=== PATIENT | male | born 1970 | race Caucasian/White ===

== ENCOUNTER 2020-05-18 08:09 | Emergency (ER) | payer MEDICAID, SELFPAY ==
[2020-05-18 08:25] VITALS: BP 117/82; PULSE 83; RESP 14; TEMP 36.8; O2SAT 98; BMI 29.0
--- NOTE | 2020-05-18 08:38 | XR_ITS ---
EXAMINATION: XR LUMBOSACRAL SPINE CLINICAL INFORMATION: Swelling low back pain COMPARISON: X-rays of lumbar sacral spine May 2011. Multiple prior CT examinations most recent October 2016. TECHNIQUE: Three views of the lumbosacral spine. FINDINGS: There is a grade 1-2 anterolisthesis of L5 and S1 secondary to bilateral pars defects. This was present on the prior examination 2010 as well as recent imaging exams.. No definite change in alignment at this level. There is multilevel degenerative disc changes from L1-L2 through L5-S1 manifested by disc space narrowing with endplate osteophytes most prominent at the L5-S1 level. There is a prominent syndesmophyte at the L3-L4 level increased compared to prior imaging exams. The partially visualized pelvis including sacroiliac joints is normal. XR/XR lumbar spine 2-3V IMPRESSION: Degenerative changes lumbar sacral spine with a chronic anterolisthesis at L5-S1 secondary to bilateral pars defects essentially unchanged compared with 2011. No acute abnormality.
--- NOTE | 2020-05-18 08:55 | ED.BACK ---
HPI - Back Pain/Injury General Chief Complaint: Back Pain/Injury Stated Complaint: back pain Time Seen by Provider: 05/18/20 08:38 Source: patient Mode of arrival: ambulatory History of Present Illness HPI Narrative: 49yo M with a past medical history of chronic back pain, depression presenting to ED complaining of left-sided low back pain radiating down LLE x1 week s/p heavy lifting at work. Reports lifted tires out of [employer] truck, prior to having pain urine also reports lump to lower back. Denies fever, chills, direct trauma/injury to area, weakness, urinary incontinence or retention Denies MARGE ROLAND elicited complaint: back injury Related Data Previous Rx's Medication Instructions Recorded acetaminophen [Tylenol Extra 500 mg PO Q6H PRN #20 tab 05/18/20 Strength] cyclobenzaprine 5 mg PO Q8H PRN 5 Days #14 tab 05/18/20 lidocaine [Lidoderm] 1 patch TOPICAL DAILY PRN #30 ea 05/18/20 MDD remove after 12 hours naproxen 500 mg PO BID PRN 10 Days #20 tab 05/18/20 Allergies Allergy/AdvReac Type Severity Reaction Status Date / Time No Known Allergies Allergy Unverified 03/23/20 16:31 Review of Systems Review of Systems: Constitutional: No Weight loss, No Fever, No Chills Genitourinary:, No Dysuria, No Urinary Incontinence or retention Musculoskeletal: +back pain, No Myalgias, No Joint Swelling Skin: No Skin Lesions, No rash Neuro: No Weakness, No Numbness, No Paresthesias Yes all other systems are reviewed and are negative PMFSH Past Medical History Attestation statement: The following information was validated with the patient. Medical History (Updated 05/18/20 @ 09:01 by TESSA Donaldson) Chronic back pain Depression Surgical History (Updated 05/18/20 @ 08:38 by Barbie Lan) H/O abdominal surgery Social History Social History Advance Directives: No Advance Directives Information Provided: Yes Physical Exam Vital Signs: Vital Signs: Last Vital Signs Temp 98.3 F 05/18/20 08:25 Pulse 83 05/18/20 08:25 Resp 14 05/18/20 08:25 BP 117/82 05/18/20 08:25 Pulse Ox 98 05/18/20 08:25 Body Mass Index 29.0 Const: General: cooperative and healthy appearing Orientation/consciousness: patient oriented x3 Limitations: no limitations HENMT: Head: Yes normal to inspection Ears: hearing grossly normal bilaterally General nose exam: Normal external nose present Face and sinus: Yes normal facial exam Eyes: General: appearance normal, both eyes and all related structures EOM: EOMs intact bilaterally Neck: Neck: Yes normal visual inspection Resp: Effort & Inspection: normal respiratory effort Back/Spine/Pelvis: Other: + swelling noted to midline low lumbar area with mild ttp, no erythema, fluctuance/induration. + left-sided low lumbar MSK ttp Skin: Rashes: no rashes Wounds: no wounds Neuro: Other: No saddle anesthesia. Ambulating with slow steady gait General: patient oriented x3 Extrem: General: Yes normal to inspection Course Course Course Narrative: -x-ray showing degenerative changes of the lumbosacral spine unchanged from 2010. No acute abnormality MDM - Back Pain/Injury MDM Narrative Medical decision making narrative: On exam VSS, NAD/well-appearing, physical exam as above, swelling noted to midline lumbar spine with TTP over area, no overlying infection/abscess, likely muscle spasming. No concern for cauda equina/cord compression Discharge Plan Discharge Clinical Impression: Strain of lumbar region Patient Disposition: Home, Self-Care Instructions: Low Back Strain (ED) Additional Instructions: Your pain is likely musculoskeletal Flexeril is a muscle relaxer, take at night as it makes you drowsy, do not drive, drink alcohol, or operate machinery while taking it Naproxen as an anti-inflammatory / pain medication, take with food Lidoderm patches are numbing patches, apply to painful area In addition take Tylenol at home If symptoms persist or worsen, pain becomes unbearable, you developed urinary retention or incontinence, or weakness return to the ED Prescriptions: New acetaminophen [Tylenol Extra Strength] 500 mg tablet 500 mg PO Q6H PRN (Reason: pain or fever) Qty: 20 RF: 0 lidocaine [Lidoderm] 5 % adhesive patch,medicated 1 patch topical DAILY MDD remove after 12 hours PRN (Reason: pain) Qty: 30 RF: 0 naproxen 500 mg tablet 500 mg PO BID PRN (Reason: pain) 10 Days Qty: 20 RF: 0 cyclobenzaprine 5 mg tablet 5 mg PO Q8H PRN (Reason: pain (scale score 7-10)) 5 Days Qty: 14 RF: 0 Referrals: [facility] [Primary Care Provider] - 2 days Stand Alone Forms: Work/School Release Print Language: Montenegrin
[2020-05-18] MEDS: Cyclobenzaprine HCl 5 MG TABLET PO (09:02)
[2020-05-18] MEDS: Ketorolac Tromethamine 15 MG/ML VIAL IM (09:03)
== END 2020-05-18 09:20 | disposition home or self-care (01) ==
PROVIDERS: Emergency Provider Emergency Medicine
DX: S39.012A Strain of muscle, fascia and tendon of lower back, initial encounter (principal); M54.6 Pain in thoracic spine; X50.0XXA Overexertion from strenuous movement or load, initial encounter; X50.3XXA Overexertion from repetitive movements, initial encounter; X50.9XXA Other and unspecified overexertion or strenuous movements or postures, initial encounter; M79.662 Pain in left lower leg; Z79.899 Other long term (current) drug therapy
CPT/HCPCS: 72100; 96372; 99283; 99284; J1885

== ENCOUNTER 2020-05-26 10:03 | Outpatient (REF) | payer MEDICAID, SELFPAY | END 2020-05-26 10:04 | disposition home or self-care (01) | LOC: HO.LAB 10:03 | PROVIDERS: Visit Provider Internal Medicine | DX: Z20.828 Contact with and (suspected) exposure to other viral communicable diseases (principal) | CPT/HCPCS: C9803; U0003 ==

== ENCOUNTER 2020-11-20 13:35 | Emergency (ER) | payer MEDICAID, SELFPAY ==
--- NOTE | ~2020-11-20 | CT_ITS ---
EXAMINATION: CT ABDOMEN AND PELVIS WITH CONTRAST CLINICAL INFORMATION: Right lower quadrant abdominal pain COMPARISON: 10/16/2016 TECHNIQUE: Multidetector volumetric images were obtained from the superior aspect of the liver through the pubic symphysis following administration 85 mL of Omnipaque 350 intravenous contrast. Sagittal and coronal reformatted images were obtained on the technologist's workstation. Oral contrast: No This CT examination was performed using dose optimization techniques as appropriate, variously including the following: *Automated exposure control *Adjustment of mA and/or kV according to patient size (this includes techniques or standardized protocols for targeted exams where dose is matched to indication/reason for exam; i.e. extremities or head) *Use of iterative reconstruction technique DLP: 423 mGy-cm FINDINGS: LUNG BASES: The visualized lung bases are unremarkable. LIVER, GALLBLADDER, AND BILIARY TREE: Unchanged 1 cm cyst along the anterior margin of the left lobe of the liver; no imaging follow-up recommended. No new suspicious or concerning focal liver lesion seen. The hepatic and portal veins enhance normally. No biliary ductal dilatation. The gallbladder is unremarkable with no evidence of radiopaque gallstones, gallbladder wall thickening, or obvious pericholecystic inflammatory changes. PANCREAS: Unremarkable. SPLEEN: Unremarkable. ADRENAL GLANDS: Unremarkable. KIDNEYS AND URETERS: The kidneys are normal in size, shape, and attenuation. No hydronephrosis, hydroureter, or calculi seen. No perinephric stranding. BLADDER: Unremarkable. GASTROINTESTINAL TRACT: Stomach and small bowel are nondilated. The appendix is well-seen and normal. There appears to be wall thickening of the mid rectum and distal rectum, for example images 70/77 and 66/77. The proximal sigmoid colon is collapsed. The remainder of the colon is normal in appearance with a few scattered colonic diverticula and largely distended by stool. ABDOMINAL WALL: Small fat-containing umbilical hernia. LYMPH NODES: There is right inguinal lymphadenopathy. The largest right inguinal lymph node measures 2.2 x 1.3 cm. These were prominent previously as well. VASCULAR: Normal caliber aorta. PELVIC VISCERA: The prostate and seminal vesicles are unremarkable. OSSEOUS STRUCTURES: There is grade 2 anterolisthesis of L5 on S1 with chronic bilateral L5 pars defects. Severe degenerative disc disease at L5-S1. CT/CT abdomen pelvis w con IMPRESSION: There appears to be wall thickening of the mid rectum and distal rectum. This could be infectious, inflammatory, or neoplastic. Recommend correlation with history, physical exam, and direct visualization. There is right inguinal lymphadenopathy, present in 2017 as well. Its unclear if the lymphadenopathy has persisted in the interval or is recurrent. This could be malignant or reactive from an infectious or inflammatory process. Main clinical correlation. This would be readily amenable to tissue sampling. The appendix is well-seen and normal (image 46/77).
[2020-11-20 14:22] VITALS: BP 123/77; PULSE 70; RESP 18; TEMP 37; O2SAT 98; BMI 29.8
[2020-11-20 15:11] LABS: MANUAL DIFF FLAG NO
[2020-11-20 15:12] LABS: Basophils Absolute Auto 0.1 X10*3/uL (0.0-0.2); Basophils Percent Auto 0.7 % (0-2); Eosinophils Absolute Auto 0.4 X10*3/uL (0.0-0.4); Eosinophils Percent Auto 3.9 % (0-4); Hematocrit 40.6 % (42-52); Hemoglobin 13.5 g/dl (14.0-18.0); Imm Gran Abs Auto 0.03 X10*3/uL (0.00-0.03); Imm Gran Pct Auto 0.3 % (0.0-0.4); Lymphocytes Absolute Auto 2.7 X10*3/uL (1.2-4.9); Lymphocytes Percent Auto 24.6 % (20-40); Mean Corpuscular HGB Conc 33.3 g/dl (31.0-36.0); Mean Corpuscular Hemoglobin 29.4 pg (27.0-33.0); Mean Corpuscular Volume 88.5 fL (80-98); Mean Platelet Volume 10.4 fL (9.4-12.4); Monocytes Absolute Auto 0.8 X10*3/uL (0.1-1.2); Monocytes Percent Auto 6.9 % (2-11); Neutrophils Absolute Auto 6.9 X10*3/uL (2.0-8.3); Neutrophils Percent Auto 63.6 % (45-73); Platelet Count 364 X10*3/uL (160-400); Red Blood Count 4.59 X10*6/uL (4.60-5.80); Red Cell Distribution Width 13.8 % (11.0-16.0); White Blood Count 10.9 X10*3/uL (4.8-10.8)
[2020-11-20 15:21] LABS: Glucose Urine UA NEG (NEG); Leukocyte Esterase Urine NEG (NEG); Nitrite Urine NEG (NEG); Specific Gravity - Urine 1.025 (1.005-1.025); Urine Blood NEG (NEG); Urine Ketones NEG (NEG); Urine Protein NEG (NEG-TRACE)
[2020-11-20 15:28] LABS: Appearance Urine CLEAR; Color Urine YELLOW
[2020-11-20 15:34] LABS: Alanine Aminotransferase 25 U/L (0-40); Albumin Level 4.3 g/dL (3.5-5.0); Alkaline Phosphatase 92 U/L (39-117); Anion Gap 12 (12-20); Aspartate Amino Transferase 21 U/L (5-37); Bilirubin Total 0.5 mg/dL (0.0-1.0); Blood Urea Nitrogen 17 mg/dL (9-16); Carbon Dioxide 24 mmol/L (22-29); Chloride 107 mmol/L (96-108); Creatinine Clr Calc Pharmacy 100.8; Estimated Glomerular Filt Rate > 60; Glucose Random 114 mg/dL (60-115); Lipase 65 U/L (8-78); Potassium 4.1 mmol/L (3.3-5.1); Sodium 139 mmol/L (135-145); Total Protein 7.1 g/dL (6.5-8.0)
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
[2020-11-20] MEDS: 0.9 % Sodium Chloride 1,000 ML 999 ML IVCONT (20:41)
[2020-11-20] MEDS: Ketorolac Tromethamine 30 MG/ML VIAL IVPUSH (20:41)
[2020-11-20 20:44] VITALS: BP 132/88; PULSE 65; RESP 18; TEMP 36.7; O2SAT 96
--- NOTE | 2020-11-20 20:45 | PC.NURSE ---
APPEARS WELL. SKIN PWD. NO VOMITING. ABD SOFT NON TENDER. AWARE OF PLAN FOR CT.
[2020-11-20] MEDS: iohexoL 350 MG/ML 100 ML INFUS..BTL IV (20:57)
[2020-11-20 21:53] VITALS: BP 156/100; PULSE 58; RESP 16; TEMP 36.6; O2SAT 99
[2020-11-20 22:24] VITALS: BP 139/92; PULSE 59; RESP 18; TEMP 37.2; O2SAT 98
[2020-11-20] MEDS: oxyCODONE HCl Immed Release 5 MG TABLET PO (22:48)
[2020-11-20] MEDS: metroNIDAZOLE 500 MG TABLET PO (22:48)
[2020-11-20] MEDS: levoFLOXacin 750 MG TABLET PO (22:48)
== END 2020-11-21 00:24 | disposition home or self-care (01) ==
PROVIDERS: Emergency Provider Emergency Medicine
DX: K52.89 Other specified noninfective gastroenteritis and colitis (principal); R10.32 Left lower quadrant pain; K59.00 Constipation, unspecified; R59.0 Localized enlarged lymph nodes
CPT/HCPCS: 36415; 74177; 80053; 81003; 83690; 85025; 96361; 96374; 99284; J1885; Q9967

== ENCOUNTER 2021-04-11 12:29 | Outpatient (REF) | payer MEDICAID, SELFPAY | END 2021-04-11 12:30 | disposition home or self-care (01) | LOC: HO.LAB 12:29 | PROVIDERS: PCP Internal Medicine; Visit Provider Internal Medicine | DX: Z20.822 Contact with and (suspected) exposure to COVID-19 (principal) | CPT/HCPCS: C9803; U0003; U0005 ==

== ENCOUNTER 2021-04-17 10:37 | Outpatient (REF) | payer MEDICAID, SELFPAY | END 2021-04-17 10:38 | disposition home or self-care (01) | LOC: HO.LAB 10:37 | PROVIDERS: Visit Provider Internal Medicine | DX: Z20.822 Contact with and (suspected) exposure to COVID-19 (principal) | CPT/HCPCS: C9803; U0003; U0005 ==

== ENCOUNTER 2021-04-27 10:43 | Outpatient (REF) | payer MEDICAID, SELFPAY ==
[2021-04-27 11:18] LABS: COVID-19 Test Negative (Negative)
== END 2021-04-27 10:44 | disposition home or self-care (01) ==
LOC: HO.LAB 10:43
PROVIDERS: PCP Internal Medicine; Visit Provider Internal Medicine
DX: Z20.822 Contact with and (suspected) exposure to COVID-19 (principal)
CPT/HCPCS: 36415; 87635; C9803

== ENCOUNTER 2022-08-14 10:05 | Emergency (ER) | payer MEDICAID, SELFPAY ==
[2022-08-14 10:14] VITALS: BP 120/77; PULSE 88; RESP 14; TEMP 36.5; O2SAT 98; BMI 35.2
--- NOTE | 2022-08-14 11:23 | ED.GENADULT ---
HPI - General Adult General Chief complaint: General Medical Stated complaint: L side of face swollen Time Seen by Provider: 08/14/22 10:58 Source: patient Mode of arrival: ambulatory Limitations: no limitations History of Present Illness HPI narrative: 52 yo male presents to the ER for evaluation of left-sided facial swelling that he noticed today when he was at work. He states the pain and swelling or located the angle of his jaw on the left side. It is worse with palpation and opening his jaw all the way. He denies any dental pain or recent dental procedures. He reports the pain extends up to the ear. No hearing loss, drainage, fevers, chills. No pain behind the ER. He has never had swelling like this before. MD complaint: Left-sided facial swelling. Onset (ago): hour(s) Location: face Radiation: neck and other ( Ear) Severity: moderate Severity scale (1-10): 6 Quality: aching Pain Consistency: intermittent Exacerbating factors: eating and other ( movement of the mandible and jaw) Associated symptoms: denies other symptoms Treatments prior to arrival: none Related Data Previous Rx's Medication Instructions Recorded acetaminophen 500 mg tablet 500 mg PO Q6H PRN pain or fever 05/18/20 (Tylenol Extra Strength) #20 tabs cyclobenzaprine 5 mg tablet 5 mg PO Q8H PRN pain (scale score 05/18/20 7-10) 5 days #14 tabs lidocaine 5 % topical patch 1 patch topical DAILY PRN pain #30 05/18/20 (Lidoderm) ea naproxen 500 mg tablet 500 mg PO BID PRN pain 10 days #20 05/18/20 tabs ciprofloxacin HCl 500 mg tablet 500 mg PO Q12H 10 days #20 tabs 11/20/20 metronidazole 500 mg tablet 500 mg PO Q8H 10 days #30 tabs 11/20/20 (Flagyl) oxycodone 5 mg tablet 5 mg PO Q12H PRN pain #7 tabs 11/20/20 amoxicillin 875 mg-potassium 1 tab PO BID #14 tabs 08/14/22 clavulanate 125 mg tablet ibuprofen 600 mg tablet 600 mg PO Q8H PRN fever or pain 08/14/22 #20 tabs Allergies Allergy/AdvReac Type Severity Reaction Status Date / Time No Known Allergies Allergy Verified 11/20/20 14:22 Review of Systems Review of Systems: Yes all other systems are reviewed and are negative [facility] Past Medical History Medical History Chronic back pain Depression Surgical History H/O abdominal surgery Social History Social History Alcohol intake: current Substance Use Type: Heroin Advance Directives: No Advance Directives Information Provided: No Physical Exam ED Vital Signs: Vital Signs - 24 hr 08/14/22 10:14 Temperature 97.7 F Pulse Rate 88 Respiratory Rate 14 Blood Pressure 120/77 Pulse Oximetry 98 Oxygen Delivery Method Room Air BMI result Body Mass Index 35.2 Appearance: Alert. Oriented X3. No acute distress. HEENT: angle of the mandible on the left side with moderate swelling, mild erythema and tenderness. pain with opening the jaw all the way. no apprecaited dental tenderness, gingival swelling or fluctuance. Normal inspection and palpation of the mastoid. normal appearing EAC and TM bilaterally. airway patent. normal speech, handling secreations normally. Neck:normal inspection, trachea midline, no LAD. no swelling anteriorly. CVS: Normal heart rate and rhythm. Pulses normal. Respiratory: No respiratory distress. Lungs CTAB Skin: Skin warm and dry. Normal skin color. Normal skin turgor. No rashes. Extremities: normal inspection x4. Neuro: Oriented X 3. No motor deficit. No sensory deficit. Course Course Course Narrative: 52 yo male presenting to the ER with left sided jaw/facial swelling that started today. Exam is c/w with parotiditis, no mastoid tenderness, no dental infection or tenderness to suggest dental abscess. diagnosis and management d/w patient and - will give rx for augmentin and ibuprofen. stable for d/c home. return precautions discussed. encouraged to f/u with PCP for close follow up and to ensure resolution Medical Decision Making Differential Diagnosis Differential Diagnoses: The differential diagnosis associated with the presentation includes acute parotitis, dental infection/abscess, mastoiditis, cellulitis Independent Historian Clinical information obtained from an independent historian. History obtained from or confirmed by: Spouse External Record Review External record reviewed: Outpatient record, Prior outpatient labs and Prior outpatient radiology Tests considered The following testing was considered but not selected: CT neck considered but not preformed - airway patent, low suspicion for mastoiditis Prescription Management I considered prescription management with: Pain Medication and Antibiotic Critical Care Time Critical Care Time Critical Care Time: No Discharge Plan Discharge Clinical Impression: Acute parotitis Patient Disposition: Home, Self-Care Instructions: Sialoadenitis (ED) Additional Instructions: Take the prescribed antibiotic as directed - complete the entire course and do not miss any doses Eat sour things like oleksandr and and sour candies to increase your saliva production Take the prescribed anti-inflammatory pain medication as needed Use warm compresses to the area and massage the jaw Follow up with your doctor as needed If you develop new or worsening symptoms call 911 or come back to the ER for further evaluation. Prescriptions: New amoxicillin-pot clavulanate 875-125 mg tablet 1 tab PO BID Qty: 14 0RF ibuprofen 600 mg tablet 600 mg PO Q8H PRN (Reason: fever or pain) Qty: 20 0RF No Action acetaminophen [Tylenol Extra Strength] 500 mg tablet 500 mg PO Q6H PRN (Reason: pain or fever) Qty: 20 0RF lidocaine [Lidoderm] 5 % adhesive patch,medicated 1 patch topical DAILY MDD remove after 12 hours PRN (Reason: pain) Qty: 30 0RF Rx Instructions: leave on most painful area for up to 12 hrs naproxen 500 mg tablet 500 mg PO BID PRN (Reason: pain) 10 Days Qty: 20 0RF cyclobenzaprine 5 mg tablet 5 mg PO Q8H PRN (Reason: pain (scale score 7-10)) 5 Days Qty: 14 0RF ciprofloxacin HCl 500 mg tablet 500 mg PO Q12H 10 Days Qty: 20 0RF metronidazole [Flagyl] 500 mg tablet 500 mg PO Q8H 10 Days Qty: 30 0RF oxycodone 5 mg tablet 5 mg PO Q12H PRN (Reason: pain) Qty: 7 0RF Referrals: Janice Galicia [Primary Care Provider] - Stand Alone Forms: Work/School Release
== END 2022-08-14 11:55 | disposition home or self-care (01) ==
PROVIDERS: Emergency Provider Emergency Medicine
DX: K11.21 Acute sialoadenitis (principal)
CPT/HCPCS: 99282; 99283

== ENCOUNTER 2025-06-01 11:22 | Outpatient (REF) | payer BC, SELFPAY ==
[2025-06-01 13:19] LABS: Hematocrit 39.0 % (42.0-52.0); Hemoglobin 13.1 g/dl (14.0-18.0); Imm Gran Abs Auto 0.04 X10*3/uL (0.00-0.03); Imm Gran Pct Auto 0.5 % (0.0-0.4); Lymphocytes Absolute Auto 2.9 X10*3/uL (1.2-4.9); MANUAL DIFF FLAG SCAN; Mean Corpuscular HGB Conc 33.6 g/dl (31.0-36.0); Mean Corpuscular Hemoglobin 29.5 pg (27.0-33.0); Mean Corpuscular Volume 87.8 fL (80.0-98.0); NRBC Abs Auto 0.000 X10*3/uL (0.0-0.012); NRBC Pct Auto 0.0 /100WBC (0.0-0.2); Platelet Count 324 X10*3/uL (160-400); Red Blood Count 4.44 X10*6/uL (4.60-5.80); SCAN SMEAR FLAG 1; White Blood Count 8.7 X10*3/uL (4.8-10.8)
[2025-06-01 13:59] LABS: Alanine Aminotransferase 44 U/L (0-40); Albumin Level 4.6 g/dL (3.5-5.0); Alkaline Phosphatase 100 U/L (39-117); Anion Gap 11 (12-20); Aspartate Amino Transferase 32 U/L (5-37); Blood Urea Nitrogen 17 mg/dL (9-16); Calcium 9.2 mg/dL (8.4-10.2); Carbon Dioxide 27 mmol/L (22-29); Chloride 109 mmol/L (96-108); Cholesterol 167 mg/dL (<200); Estimated Glomerular Filt Rate > 60; HDL Cholesterol 38 mg/dL (>40); Potassium 4.2 mmol/L (3.3-5.1); Sodium 143 mmol/L (135-145); Total Protein 7.4 g/dL (6.5-8.0); Triglycerides 176 mg/dL (<150)
[2025-06-01 14:02] LABS: Prostate Specific Antigen 0.26 ng/mL (<0.05-4.0)
--- OUTSIDE RECORDS SUMMARY | 2025-06-01 14:20 | XMS_ITS | Clinical Summary ---
Author Organization [employer] Address [address] [facility] [address] [place] [address] Care Team Providers Care Welt Beater Name Role Phone Unavailable Primary Care Provider Unavailabl e Allergies No known active allergies Medications * This document contains information received from the source organization and may not represent a complete record from that organization. meloxicam (Mobic) 15 MG tabletIndicatio ns:Chronic bilateral low back pain without sciatica,Chroni c pain of right knee Take 1 tablet (15 mg) by mouth Once per day. 30 tablet 11 05/30/2025 4:34 PM EST 5 05/25/20 26 Active lidocaine (Lidoderm) 5 % patchIndication s:Chronic bilateral low back pain without sciatica Apply 1 patch topically Once per day. Remove & discard patch within 12 hours or as directed by MD. 30 patch 2 05/30/2025 4:34 PM EST Active mirtazapine (Remeron) 15 MG tabletIndicatio ns:Anxiety with depression Take 1 tablet (15 mg) by mouth at bedtime. 30 tablet 05/30/2025 4:34 PM EST 5 06/29/20 25 Active amitriptyline (Elavil) 25 MG tablet Take 1 tablet by mouth at bed time. 6 05/25/20 25 Discontinu ed(Therapy completed) Active Problems Problem Noted Date Diagnosed Date Moderate episode of recurren t major depressive disorder (CMS/HCC) 2025 Other social stressor 05/31/2025 Lower abdominal pain 10/02/2016 Hematochezia 05/21/2016 Impotence 05/21/2016 Insomnia 05/21/2016 Alcohol dependence 12/11/2011 Anxiety state 12/11/2011 Backache 12/11/2011 Assessment & Plan (05/25/2025 4:27 PM EST): Will start meloxicam and lidocaine daily while waiting for x-ray results. Pt declined physical therapy. Instructed to stop ibuprofen. Use Tylenol if further pain control is needed. Orders: XR Lumbar Spine Complete 4+ Views; Future meloxicam (Mobic) 15 MG tablet; Take 1 tablet (15 mg) by mouth Once per day. lidocaine (Lidoderm) 5 % patch; Apply 1 patch topically Once per day. Remove & discard patch within 12 hours or as directed by . Hemorrhoids 12/11/2011 Encounters * This document contains information received from the source organization and may not represent a complete record from that organization. Date Type Department Care Team Description 2025 Orders Only [facility] MED & PEDS [address] [place] [address] Yoli Sullivan MD [address] [address] Ivy Lee NP Referral 05/26/[address] [address] Ivy Lee NP Referral 05/25/2025 2:30 PM EST Office Visit [address] [address] Yoli Sullivan MD Healthcare maintenance (Primary Dx); Lipid screening; Routine screening for STI (sexually transmitted infection); Screening for colon cancer; Screening for prostate cancer; Encounter for immunization; Anxiety with depression; Chronic bilateral low back pain without sciatica; Chronic pain of right knee; Nicotine dependence with current use 05/25/2025 Travel 05/24/[address] [address] [address] [place] CHARTPREP from Last 3 Months Immunizations Immunization Administration Dates Next Due Hep B, adult 10/19/2009,07/27/2009,04/26/2009 Influenza injectable quadriv alent IIV4 with preservative 05/21/2016 Influenza injectable quadriv alent preservative free 04/17/2021,05/25/2020,2019 Influenza, IIV3, injectable 05/15/2011 Influenza, Split (incl. clayton fied surface antigen) 03/26/2012 Influenza, seasonal, injecta ble, preservative free 05/25/2025,08/20/2014 Pfizer Covid-19 Vaccine 12+ 05/25/2025 Pneumococcal Conjugate PCV 20 05/25/2025 Pneumococcal Polysaccharide PPSV23 08/20/2014, TD (adult), 2 Lf tetanus tox oid, preservative free, adsorbed 08/11/2006 Tdap 05/25/2025 Social History Tobacco Use Types Packs/Day Years Used Date Smoking Tobacco: Every Day Cigarettes Passive Smoke Exposure: Current Smokeless Tobacco: Current Tobacco Cessation:Ready to Q uit: Not Asked; Counseling Given: Not Answered Alcohol Answer Date Recorded How often do you have a drink containing alcohol ? 3 05/25/2025 How many drinks containing a lcohol do you have on a typical day when you are drinking? 2 05/25/2025 How often do you have six or more drinks on one occasion? 3 05/25/2025 Depression Answer Date Recorded Patient Health Questionnaire-9 Score 12 2025 Patient Health Questionnaire-9 Score 12 2025 Last PHQ-9: Questionnaire Data Not on file 1 08/01/2024 Housing Stability Answer Date Recorded What is your housing situation today? I have aminata hartman 05/25/[address] you li ve. Do you have problems with any of the following? None of the above 05/25/2025 Food Insecurity Answer Date Recorded Within the past 12 months, y ou worried that your food would run out before you got money to buy more: Never True 05/25/2025 Within the past 12 months,th e food you bought just didn't last and you didn't have enough money to get more: Never True Transportation Answer Date Recorded In the past 12 months, has l ack of transportation kept you from medical appts, meetings, work or from getting things needed for daily living? No 05/25/2025 Utilities Answer Date Recorded In the past 12 months, has t he electric, gas, oil or water company threatened to shut off services in your home? No 05/25/2025 Depression Answer Date Recorded Patient Health Questionnaire-2 Score 4 2025 Internet Access Answer Date Recorded Internet Access Q1 Yes 05/25/2025 Internet Access Q2 Not on file 05/25/2025 Sex and Gender Information Value Date Recorded Sex Assigned at Male 05/06/2022 10:17 AM EDT Legal Sex Male 10:17 AM EDT Gender Identity Male 05/06/2022 10:17 AM EDT Sexual Orientation Straight 05/06/2022 10 :17 AM EDT Last Filed Vital Signs Vital Sign Reading Time Taken Comments Blood Pressure 142/90 05/25/2025 2:35 PM EST Pulse 97 05/25/2025 2:35 PM EST Temperature 36.8 C (98.2 F) 05/25/2025 2:35 PM EST Respiratory Rate 14 05/25/2025 2:35 PM EST Oxygen Saturation 96% 05/25/2025 2:35 PM EST Inhaled Oxygen Concentration - - Weight 82.3 kg (181 lb 8 oz) 05/25/2025 2:35 PM EST Height 173.5 cm (5' 8.31 ) 05/25/2025 2:35 PM ES T Body Mass Index 27.35 05/25/2025 2:35 PM EST Plan of Treatment Upcoming Encounters Date Type Department Care Team (Late st Contact Info) Description 06/29/2025 3:00 PM EST Office Visit [facility] MEDICINE [address] [place] [address] Ivy Lee NP [address] [place] [address] Health Maintenance Due Date Last Done Comments CT Colonography 1972 Colonoscopy 1972 Colorectal Cancer Screening 1972 FIT DNA/Cologuard 1972 FIT 1972 FOBT 1972 HIV Screening 1972 Sigmoidoscopy 1972 Hepatitis C Screening 1990 Zoster Vaccines (1 of 2) 2022 Depression Monitoring 11/29/2025 2025, 025 Alcohol/Substance Use Screening 05/25/2026 05/25/2025 Disability Screening 05/25/2026 05/25/2025 SDOH Screening 05/25/2026 05/25/2025 Tobacco Screening 05/25/2026 05/25/2025 Lipid Panel 2030 2025 DTaP/Tdap/Td Vaccines (2 - Td or Tdap) 05/25/2035 05/25/2025, 08/11/2006 RSV Patients and Patients Aged 60 years or older (1 - 1-dose 75+ series) 2047 Hepatitis B Vaccines Completed 10/19/2009, 07/27/2009, 04/26/2009 COVID-19 Vaccine Completed 05/25/2025, 11/2021, 12/21/2020, Additional history exists Influenza Vaccine Completed 05/25/2025, , 05/25/2020, Additional history exists Pneumococcal Vaccine: 50+ Years Completed 05/25/2025, 08/20/2014, 08/01/2010 HIB Vaccines Aged Out No longer eligi ble based on patient's age to complete this topic HPV Vaccines Aged Out No longer eligi ble based on patient's age to complete this topic Hepatitis A Vaccines Aged Out No long er eligible based on patient's age to complete this topic IPV Vaccines Aged Out No longer eligi ble based on patient's age to complete this topic Meningococcal B Vaccine Aged Out No l onger eligible based on patient's age to complete this topic Meningococcal Vaccine Aged Out No analilia figueroa eligible based on patient's age to complete this topic RSV under 20 months Aged Out No longe r eligible based on patient's age to complete this topic Rotavirus Vaccines Aged Out No longer eligible based on patient's age to complete this topic Procedures Procedure Name Priority Date/Time Associated Diagnosis Comments SLIDE REVIEW Routine 2025 11:29 AM EST PSA, TOTAL Routine 2025 11:29 AM EST Screening for prostate cancer VITAMIN D,25-OH,TOTAL,IA Routine 2025 11:29 AM EST Healthcare maintenance LIPID PANEL, STANDARD Routine 2025 11:29 AM EST Lipid screening HEMOGLOBIN A1C Routine 2025 11:29 AM EST Healthcare maintenance COMPREHENSIVE METABOLIC PANEL Routine 2025 11:29 AM EST Healthcare maintenance CBC WITH AUTO DIFFERENTIAL Routine 2025 11:29 AM EST Healthcare maintenance from Last 3 Months Results * Slide Review (2025 11:29 AM EST) Slide Review VERIFIED [facility] 2025 11:2 9 AM EST 2025 1:04 PM EST us Yoli Sullivan MD LAB BLOOD ORDERABLES Final Result [facility] [address] [place] [phone] * (ABNORMAL) Vitamin D, 25-Hydroxy, Total, Immunoassay (2025 11:29 AM EST) Vitamin D 25-OH Total 28.0(L) >30 ng/mL [facility] Comment: Health Based Reference Values*< 20 ng/mL [id number] ng/mL Insufficient> 30 ng/mL Sufficient*Wagner MINOR. N Engl J Med. 2007;357:266-280There is no well-established upper level of normal vitamin Dlevels. Some laboratories use 50 ng/mL as an upper limit ofnormal. However, toxicity is patient-dependent and may occurat any level. Careful correlation with the patient'spresentation is necessary and, if there is concern forvitamin D toxicity, treatment should be consideredirrespective of the serum level.Care must be taken in interpreting Vitamin D results fromdifferent laboratories and methodologies. Published datademonstrated that results from patients undergoinghemodialysis may show a negative bias when tested withvarious automated 25-OH vitamin D assays when compared toLC-MS/MS.When testing samples from patients whose predominant form ofVitamin D is Vitamin D2, such as patients receiving VitaminD2 supplementation, results that are subtherapeutic shouldbe confirmed with another method such as LC-MS/MS. Blood Venous blood specimen / Unknown 2025 11:29 AM EST 2025 1:04 PM EST us Yoli Sullivan MD LAB BLOOD ORDERABLES Final Result [facility] [address] [place] [address] [phone] * (ABNORMAL) CBC auto differential (2025 11:29 AM EST) White Blood Count 8.7 4.8 - 10.8 X10*3/uL [facility] Red Blood Count 4.44(L) 4.60 - 5.80 X10*6/uL [facility] Hemoglobin 13.1(L) 14.0 - 18.0 g/dl [facility] Hematocrit 39.0(L) 42.0 - 52.0 % [facility] Mean Corpuscular Volume 87.8 80.0 - 98.0 fL [facility] Mean Corpuscular Hemoglobin 29.5 27.0 - 33.0 pg [facility] Mean Corpuscular HGB Conc 33.6 31.0 - 36.0 g/dl [facility] Red Cell Distribution Width 13.3 11.0 - 16.0 % [facility] Platelet Count 324 160 - 400 X10*3/uL [facility] Mean Platelet Volume 10.8 9.4 - 12.4 fL [facility] Neutrophils Percent Auto 55.9 45 - 73 % [facility] Imm Gran Pct Auto 0.5(H) 0.0 - 0.4 % [facility] Lymphocytes Percent Auto 33.0 20 - 40 % [facility] Monocytes Percent Auto 6.7 2 - 11 % [facility] Eosinophils Percent Auto 2.8 0 - 4 % [facility] Basophils Percent Auto 1.1 0 - 2 % [facility] NRBC Pct Auto 0.0 0.0 - 0.2 /100WBC [facility] Neutrophils Absolute Auto 4.9 2.0 - 8.3 x10*3/uL [facility] Imm Gran Abs Auto 0.04(H) 0.00 - 0.03 X10*3/uL [facility] Lymphocytes Absolute Auto 2.9 1.2 - 4.9 X10*3/uL [facility] Monocytes Absolute Auto 0.6 0.1 - 1.2 X10*3/uL [facility] Eosinophils Absolute Auto 0.2 0.0 - 0.4 X10*3/uL [facility] Basophils Absolute Auto 0.1 0.0 - 0.2 X10*3/uL [facility] NRBC Abs Auto 0.000 0.0 - 0.012 X10*3/uL [facility] Blood Venous blood specimen / Unknown 2025 11:29 AM EST 2025 1:04 PM EST us Yoli Sullivan MD LAB BLOOD ORDERABLES Edited Result - Final [facility] [address] [place] [phone] * PSA,Total (2025 11:29 AM EST) Pathologist [facility] Prostate Specific Antigen 0.26 <0.05 - 4.0 ng/mL [facility] Comment:PSA methodology: Deidre Alex i ChemiluminescentMicroparticle Immunoassay (CMIA) Blood Venous blood specimen / Unknown 2025 11:29 AM EST 2025 1:04 PM EST Yoli Sullivan MD LAB BLOOD ORDERABLES Final Result [facility] [address] [place] [phone] * Hemoglobin A1c (2025 11:29 AM EST) Pathologist [facility] Hemoglobin A1c 5.5 <6.0 % [facility] Comment:Hemoglobin A1C Refer ence Range Adults: 4.8 - 6.0 % Non diabetic: < 6.0 % Goal: < 7.0 %Additional Action Suggested: > 8.0 %Note: Hemoglobin A1c results are invalid for patients with abnormal amounts of HbF. Blood transfusions may impact the HbA1c concentration in the patient sample. Estimated Average Glucose 111 mg/dL [facility] Comment:eAG = Estimated ave rage glucose which is %A1C expressed asaverage glucose, using the formula of the [id number] Glucose study (ADAG), Diabetes Care, Vol.31,#8,2007 Blood Venous blood specimen / Unknown 2025 11:29 AM EST 2025 1:04 PM EST us Yoli Sullivan MD LAB BLOOD ORDERABLES Final Result Performing Organization Address City/State/[facility] Co de Phone Number [facility] [address] [place] [phone] * (ABNORMAL) Lipid Panel, Standard (2025 11:29 AM EST) Triglycerides 176(H) <150 mg/dL [facility] Comment:Slight Lipemia.South able Triglyceride: less than 150 mg/dLBorderline High Triglyceride 150-199 mg/dLHigh Triglyceride: 200-499 mg/dLVery High Triglyceride: greater than or equal to 5OO mg/dL Cholesterol 167 <200 mg/dL [facility] Comment:Desirable Cholestero l: less than 200 mg/dLBorderline High Cholesterol: 200-239 mg/dLHigh Cholesterol: greater than 239 mg/dL LDL Cholesterol Calculated 94 <100 mg/dL [facility] Comment:Desirable LDL: less than 100 mg/dLNear Optimal/Above Optimal LDL: 110- 129 mg/dLBorderline High LDL: 130-159 mg/dLHigh LDL: 160-189 mg/dLVery High LDL: greater than or equal to 190 mg/dL HDL Cholesterol 38(L) >40 mg/dL [facility] Comment:Desirable HDL: great er than 40 mg/dL Note: This HDL assay may give artificially low results in patients with liver disease. Blood Venous blood specimen / Unknown 2025 11:29 AM EST 2025 1:04 PM EST us Yoli Sullivan MD LAB BLOOD ORDERABLES Final Result [facility] [address] [place] [phone] * (ABNORMAL) Comprehensive Metabolic Panel (2025 11:29 AM EST) Sodium 143 135 - 145 mmol/L [facility] Potassium 4.2 3.3 - 5.1 mmol/L [facility] Chloride 109(H) 96 - 108 mmol/L [facility] Carbon Dioxide 27 22 - 29 mmol/L [facility] Anion Gap 11(L) 12 - 20 [facility] Urea Nitrogen (BUN) 17(H) 9 - 16 mg/dL [facility] Creatinine, Serum 0.88 0.5 - 1.4 mg/dL [facility] Estimated Glomerular Filt Rate >60 [facility] Comment:Chronic Kidney Disea se: Estimated GFR < 60 mL/min/[id number] Kidney Disease: Estimated GFR < 15 mL/min/1.73m2 Glucose 96 60 - 115 mg/dL [facility] Calcium 9.2 8.4 - 10.2 mg/dL [facility] Bilirubin, Total 0.4 0.0 - 1.0 mg/dL [facility] Aspartate Amino Transferase 32 5 - 37 U/L [facility] Alanine Aminotransferase 44(H) 0 - 40 U/L [facility] Total Protein 7.4 6.5 - 8.0 g/dL [facility] Albumin Level 4.6 3.5 - 5.0 g/dL [facility] Alkaline Phosphatase 100 39 - 117 U/L [facility] Blood Venous blood specimen / Unknown 2025 11:29 AM EST 2025 1:04 PM EST us Yoli Sullivan MD LAB BLOOD ORDERABLES Final Result [facility] [address] [facility] [place] [address] [phone] from Last 3 Months Insurance BS PPO
--- OUTSIDE RECORDS SUMMARY | 2025-06-01 14:20 | XMS_ITS | Encounter Summary ---
Author Organization [employer] Address [address] [facility] [address]t [place] [address] Care Team Providers Care Spice Blender Name Role Phone Unavailable Primary Care Provider Unavailabl e Reason for Visit * Reason Onset Date Comments Referral 2025 Encounter Details Date Type Department Care Team ([facility] st Contact Info) Description 2025 Telephone [facility] MEDICINE [address] [place] [address] Ivy Lee NP [address] [place] [address] Referral Social History Tobacco Use Types Packs/Day Years Used Date Smoking Tobacco: Every Day Cigarettes Passive Smoke Exposure: Current Smokeless Tobacco: Current Alcohol Answer Date Recorded How often do [...] Orientation Straight 05/06/2022 10 :17 AM EDT documented as of this encounter Functional Status * Over the past 2 weeks, how often have you been bothered by any of the following problems? Question Answer Date of Assessment Author Patient Health Questionnaire-2 Score 4 2025 12:34 PM Holly Souza LMHC * Little interest or pleasure in doing things Answer Date of Assessment Author More than half the days 2025 12:34 PM Holly Souza LMHC * Feeling down, depressed, or hopeless Answer Date of Assessment Author More than half the days 2025 12:34 PM Holly Souza LMHC * Trouble falling or staying asleep, or sleeping too much Answer Date of Assessment Author More than half the days 2025 12:34 PM Holly Souza LMHC * Feeling tired or having little energy Answer Date of Assessment Author More than half the days 2025 12:34 PM Holly Souza LMHC * Poor appetite or overeating Answer Date of Assessment Author More than half the days 2025 12:34 PM Holly Souza LMHC * Feeling bad about yourself - or that you are a failure or have let yourself or your family down Answer Date of Assessment Author Not at all 2025 12:34 PM Holly Valdez Ba, LMHC * Trouble concentrating on things, such as reading the newspaper or watching television Answer Date of Assessment Author Several days 2025 12:34 PM Holly Valdez Ba, LMHC * Moving or speaking so slowly that other people could have noticed? Or the opposite - being so fidgety or restless that you have been moving around a lot more than usual. Answer Date of Assessment Author Several days 2025 12:34 PM Holly Valdez Ba, LMHC * Thoughts that you would be better off or hurting yourself in some way Answer Date of Assessment Author Not at all 2025 12:34 PM Holly Valdez Ba, LMHC * Patient Health Questionnaire-9 Score Answer Date of Assessment Author 12 2025 12:34 PM Holly Valdez Ba, LMHC * Over the last 2 weeks, how often have you been bothered by any of the following problems? Question Answer Date of Assessment Author Feeling nervous, anxious, or on edge 1 2025 12:39 PM Renetta Souza LMHC Not being able to stop or control worrying 2 2025 12:39 PM Renetta Souza LMHC Worrying too much about different things 2 2025 12:39 PM Renetta Souza LMHC Trouble relaxing 2 2025 12:39 PM Holly Souza LMHC Being so restless that it is hard to sit still 2 2025 12:39 PM Renetta Souza LMHC Becoming easily annoyed or irritable 2 2025 12:39 PM Renetta Souza LMHC Feeling afraid as if something awful might happen 2 2025 12:39 PM Holly Durán LMHC EMMY-7 Total Score 13 2025 12:39 PM Holly Souza LMHC * How difficult have these problems made it for you to do your work, take care of things at home, or get along with other people? Answer Date of Assessment Author Somewhat difficult 2025 12:34 PM EST Holly Connor LMHC documented as of this encounter Miscellaneous Notes * Telephone Encounter - Tracy Hernadez [place] - 2025 1:11 PM EST Pt came into office today and signed Lung referral form. [facility] with last officevisit notes. Confirmation was received. documented in this encounter Plan of Treatment Upcoming Encounters Date Type Department Care Team (Late st Contact Info) Description 06/29/2025 3:00 PM EST Office Visit [facility] MEDICINE [address] [place] [address] Ivy Lee, ELADIO [address] [place] [address] documented as of this encounter Visit Diagnoses Not on filedocumented in this encounter Additional Health Concerns Assessment Noted Time PHQ-9 Depression Total Score: 12 025 12:34 PM EST documented as of this encounter
--- OUTSIDE RECORDS SUMMARY | 2025-06-01 14:20 | XMS_ITS | Encounter Summary ---
Author Organization [employer] Address [address] [facility] 7t [place] [address] Care Team Providers Care Radio Adjuster Name Role Phone Unavailable Primary Care Provider Unavailabl e Encounter Details Date Type Department Care Team ([facility] st Contact Info) Description 2025 Orders Only [facility] MED [facility] PEDS [address] [place], [place] [phone] Yoli Sullivan MD [address] [place] [address] Social History Tobacco Use Types Packs/Day Years [...] sit still 2 2025 12:39 PM Renetta Souza, [facility] Becoming easily annoyed or irritable 2 2025 12:39 PM TABITHA Pereira [facility] Feeling afraid as if something awful might [...] Connor LMHC documented as of this encounter Plan of Treatment Upcoming Encounters Date Type Department Care Team (Late st Contact Info) Description 06/29/2025 3:00 PM EST Office Visit [facility] MEDICINE [address] [place], [place] [phone] Ivy Lee NP [address] [place], [place] [phone] documented as of this encounter Procedures Procedure Name Priority Date/Time Associated Diagnosis Comments SLIDE REVIEW Routine 2025 11:29 AM EST documented in this encounter Results * Slide Review (2025 11:29 AM EST) Slide Review VERIFIED [facility] 2025 11:2 9 AM EST 2025 1:04 PM EST us Yoli Sullivan MD LAB BLOOD ORDERABLES Final Result [facility] [address] [place] [address] [phone] documented in this encounter Visit Diagnoses Not on filedocumented in this encounter Additional Health Concerns Assessment Noted Time PHQ-9 Depression Total Score: 12 025 12:34 PM EST documented as of this encounter
[2025-06-02 04:42] LABS: Syphilis Screen Nonreactive (Nonreactive)
[2025-06-02 05:08] LABS: HBS Num1 1.59 mIU/mL (0-7.99); HBc Num1 0.07 S/CO (0.00-0.79); HBsAGNum1 0.51 S/CO (0.00-0.99); HIV Num 1 0.07 S/CO (0.00-0.99); Hepatitis B Surface Antigen Negative (Negative); ~HepC Num1 0.21 S/CO (0.00-0.79); ~Hepatitis B Surface Antibody NONREACTIVE (Nonreactive); ~Hepatitis C Antibody Nonreactive (Nonreactive)
== END 2025-06-01 11:23 | disposition home or self-care (01) ==
LOC: HO.HHCL 11:22
PROVIDERS: PCP Internal Medicine; Visit Provider Internal Medicine
DX: Z00.00 Encounter for general adult medical examination without abnormal findings (principal); Z13.220 Encounter for screening for lipoid disorders; Z12.5 Encounter for screening for malignant neoplasm of prostate; Z13.6 Encounter for screening for cardiovascular disorders; Z13.1 Encounter for screening for diabetes mellitus; Z13.21 Encounter for screening for nutritional disorder
CPT/HCPCS: 36415; 80053; 80061; 82306; 83036; 84153; 85025; 86704; 86706; 86780; 86803; 87340; 87389

== ENCOUNTER 2025-06-25 10:44 | Outpatient (REF) | payer BC, SELFPAY ==
--- NOTE | ~2025-06-25 | XR_ITS ---
EXAMINATION: XR KNEE, RIGHT CLINICAL INFORMATION: right knee pain COMPARISON: None available. TECHNIQUE: Four views of the right knee. FINDINGS: On the sunrise views, there is a linear lucency in the anterior aspect of the central patella, with mild cortical offset in this region. This could represent degenerative changes or a small fracture. Clinically correlate. Joint spaces are maintained. No significant effusion. No abnormal soft tissue calcification. XR/XR knee RT 4V IMPRESSION: Findings in the anterior aspect of the anterior aspect of the central patella, could reflect degenerative changes or a fracture. Clinically correlate. Additional/follow-up imaging as clinically indicated. Electronically signed by: Terrence Del Valle MD 06/27/2025 11:09 AM [facility] HERNANDEZ
--- NOTE | ~2025-06-25 | XR_ITS ---
EXAM: CR Xr Lumbar Spine 4v Min TECHNIQUE: PA, and lateral, lateral spot, bilateral oblique views of the lumbar spine. INDICATION: Low back pain, chronic PRIOR: X-ray on 05/18/[address] November 20, 2020 FINDINGS: Soft tissues are unremarkable. Degenerative sclerosis is present at the pubic symphysis joint. There are 5 non-rib bearing lumbar segments. T12-L1: There is mild disc space during with bridging anterior osteophyte and endplate sclerosis, progressed since the prior. L1-L2: There is minimal disc space narrowing with anterior bridging osteophyte, progressed since the prior. L2-L3: There is mild disc space narrowing with anterior osteophytes, increased since the prior L3-L4: There is mild disc space narrowing and bridging anterior osteophyte, similar to the prior. L4-L5: There is subtle disc space narrowing with anterior osteophytes. There is minimal facet degeneration. Degenerative changes have minimally increased. L5-S1: There is ossification of the left iliolumbar ligament. There is grade 2 anterolisthesis with moderate to severe disc space narrowing, chronic bilateral pars interarticularis defects, and facet arthropathy that appears similar to the prior. XR/XR lumbar spine 4V min IMPRESSION: Multilevel degenerative disc disease is mild between T12-L1 and L4-5, and mildly progressed since the prior. L5-S1: Stable moderate to severe degenerative disc disease and facet arthropathy with chronic bilateral pars intra-articular is defects and grade 2 anterolisthesis. 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 Electronically signed by: Lico Kaur MD 06/27/2025 11:13 AM [facility]
--- OUTSIDE RECORDS SUMMARY | 2025-06-25 10:48 | XMS_ITS | Clinical Summary ---
Author Organization [employer] Address [address] [facility] 7[address] [place] [address] Care Team Providers Care Commercial Reporter Name Role Phone Ivy Lee NP Primary Care Provider [phone] Allergies No known active allergies Medications * [...] 30 patch 2 05/30/2025 4:34 PM EST 5 Active mirtazapine (Remeron) 15 MG tabletIndicatio ns:Anxiety with depression Take 1 tablet (15 mg) by mouth at bedtime. 30 tablet 05/30/2025 4:34 PM EST 5 06/29/20 25 Active cholecalciferol (Vitamin D-3) 25 MCG (1000 UT) tabletIndicatio ns:Low vitamin D level Take 1 tablet (25 mcg) by mouth Once per day. 30 tablet 11 5 Active Active Problems Problem Noted Date Diagnosed Date [...] organization. Date Type Department Care Team Description 06/17/[address] [address] Ivy Lee NP Lab Orders 2025 Results Follow-Up [facility] [address] [place] [address] Yoli Sullivan MD CBC auto differential, Comprehensive Metabolic Panel, Hemoglobin A1c, Additional followed-up results: 3 2025 Orders Only [facility] [address] [place] [address] Yoli Sullivan MD Transaminitis (Primary Dx); Low vitamin D level; Normocytic anemia 2025 Orders Only [facility] [address] [place] [address] Yoli Sullivan MD [address] [address] Ivy Lee NP Referral 05/26/[address] [address] Ivy Lee NP Referral 05/25/2025 2:30 PM EST Office Visit [address] [address] Yoli Sullivan MD Healthcare maintenance (Primary Dx); Lipid screening; Routine screening for STI (sexually transmitted infection); Screening for colon cancer; Screening for prostate cancer; Encounter for immunization; Anxiety with depression; Chronic bilateral low back pain without sciatica; Chronic pain of right knee; Nicotine dependence with current use 05/25/2025 Travel 05/24/2025 Telephone [facility] [address] [place] [phone] Sho Bryant [place] CHARTPREP from Last 3 [...] Description 06/29/2025 3:00 PM EST Office Visit [facility] [address] [place] [address] Ivy Lee, ELADIO [address] [place] [phone] Health Maintenance Due Date Last Done Comments CT Colonography 1972 Colonoscopy 1972 Colorectal Cancer Screening 1972 FIT DNA/Cologuard 1972 FIT 1972 FOBT 1972 Sigmoidoscopy 1972 Zoster Vaccines (1 of 2) 2022 Depression [...] Vaccine: 50+ Years Completed 05/25/2025, 08/20/2014, 08/01/2010 HIV Screening Completed 2025 Hepatitis C Screening Completed 2025 HIB Vaccines Aged Out No longer eligi [...] 11:29 AM EST Screening for prostate cancer SYPHILIS SCREEN Routine 2025 11:29 AM EST Routine screening for STI (sexually transmitted infection) HEPATITIS B SURFACE ANTIGEN, EIA Routine 2025 11:29 AM EST Routine screening for STI (sexually transmitted infection) HEPATITIS B SURFACE ANTIBODY, QUALITATIVE Routine 2025 11:29 AM EST Routine screening for STI (sexually transmitted infection) HEPATITIS B CORE AB TOTAL Routine 2025 11:29 AM EST Routine screening for STI (sexually transmitted infection) VITAMIN D,25-OH,TOTAL,IA Routine 2025 11:29 AM EST Healthcare maintenance LIPID PANEL, STANDARD Routine 2025 11:29 AM EST Lipid screening HEPATITIS C AB W/REFL TO HCV RNA, QN, PCR Routine 2025 11:29 AM EST Routine screening for STI (sexually transmitted infection) HIV 1/2 ANTIGEN/ANTIBODY, FOURTH GENERATION W/RFL Routine 2025 11:29 AM EST Routine screening for STI (sexually transmitted infection) HEMOGLOBIN A1C Routine 2025 11:29 AM EST Healthcare maintenance COMPREHENSIVE METABOLIC PANEL Routine 2025 11:29 AM EST Healthcare maintenance CBC WITH AUTO DIFFERENTIAL Routine 2025 11:29 AM EST Healthcare maintenance from Last 3 Months Results * Syphilis Screen (2025 11:29 AM EST) Syphilis Screen Nonreactive Nonreactive [facility] Blood Venous blood specimen / Unknown 2025 11:29 AM EST 2025 1:08 PM EST Yoli Sullivan MD LAB BLOOD ORDERABLES Final Result Performing Organization Address City/[facility] Co de Phone Number [facility] [address] [place] [phone] * Slide Review (2025 11:29 AM EST) Slide Review VERIFIED [facility] 2025 11:2 9 AM EST 2025 1:04 PM EST Yoli Sullivan MD LAB BLOOD ORDERABLES Final Result Performing Organization Address [facility] Co de Phone Number [facility] [address] [place] [phone] * (ABNORMAL) Vitamin D, 25-Hydroxy, Total, Immunoassay (2025 11:29 AM EST) Vitamin D 25-OH Total 28.0(L) >30 ng/mL [facility] Comment: Health Based Reference Values*< 20 ng/mL [id number] ng/mL Insufficient> 30 ng/mL Sufficient*Wagner MINOR. N [...] Sullivan MD LAB BLOOD ORDERABLES Final Result [facility] [address] [place] [address] [phone] * (ABNORMAL) CBC auto differential (2025 11:29 AM EST) White Blood Count 8.7 4.8 - 10.8 X10*3/uL [facility] Red Blood Count 4.44(L) 4.60 - 5.80 X10*6/uL [facility] Hemoglobin 13.1(L) 14.0 - 18.0 g/dl [facility] Hematocrit 39.0(L) 42.0 - 52.0 % [facility] Mean Corpuscular Volume 87.8 80.0 - 98.0 fL [facility] Mean Corpuscular Hemoglobin 29.5 27.0 - 33.0 pg [facility] Mean Corpuscular HGB Conc 33.6 31.0 - 36.0 g/dl [facility] Red Cell Distribution Width 13.3 11.0 - 16.0 % [facility] Platelet Count 324 160 - 400 X10*3/uL [facility] Mean Platelet Volume 10.8 9.4 - 12.4 fL [facility] Neutrophils Percent Auto 55.9 45 - 73 % [facility] Imm Gran Pct Auto 0.5(H) 0.0 - 0.4 % [facility] Lymphocytes Percent Auto 33.0 20 - 40 % [facility] Monocytes Percent Auto 6.7 2 - 11 % [facility] Eosinophils Percent Auto 2.8 0 - 4 % [facility] Basophils Percent Auto 1.1 0 - 2 % [facility] NRBC Pct Auto 0.0 0.0 - 0.2 /100WBC [facility] Neutrophils Absolute Auto 4.9 2.0 - 8.3 x10*3/uL [facility] Imm Gran Abs Auto 0.04(H) 0.00 - 0.03 X10*3/uL [facility] Lymphocytes Absolute Auto 2.9 1.2 - 4.9 X10*3/uL [facility] Monocytes Absolute Auto 0.6 0.1 - 1.2 X10*3/uL [facility] Eosinophils Absolute Auto 0.2 0.0 - 0.4 X10*3/uL [facility] Basophils Absolute Auto 0.1 0.0 - 0.2 X10*3/uL [facility] NRBC Abs Auto 0.000 0.0 - 0.012 X10*3/uL [facility] Blood Venous blood specimen / Unknown 2025 11:29 AM EST 2025 1:04 PM EST Yoli Sullivan MD LAB BLOOD ORDERABLES Edited Result - Final [facility] [address] [place] [address] [phone] * Hepatitis C Antibody with Reflex to HCV, RNA, Quantitative, Real-Time PCR (2025 11:29 AM EST) Hepatitis C Antibody Nonreactive Nonreactive [facility] Comment:Antibodies to HCV no t detected; does not exclude early acuteHCV infection. Blood Venous blood specimen / Unknown 2025 11:29 AM EST 2025 1:04 PM EST Yoli Sullivan MD LAB BLOOD ORDERABLES Final Result Performing Organization Address City/[facility]/ZIP Co de Phone Number [facility] [address] [place] [phone] * Hepatitis B surface antigen, EIA (2025 11:29 AM EST) Hepatitis B Surface Ag Negative Negative [facility] Blood Venous blood specimen / Unknown 2025 11:29 AM EST 2025 1:04 PM EST us Yoil Sullivan MD LAB BLOOD ORDERABLES Final Result Performing Organization Address [facility] Co de Phone Number [facility] [address] [place] [phone] * Hepatitis B Core Antibody, Total (2025 11:29 AM EST) Pathologist [facility] Hepatitis B Core Antibody Nonreactive Nonreactive [facility] Blood Venous blood specimen / Unknown 2025 11:29 AM EST 2025 1:04 PM EST us Yoli Sullivan MD LAB BLOOD ORDERABLES Final Result Performing Organization Address [facility] Co de Phone Number [facility] [address] [place] [phone] * HIV-1/2 Antigen and Antibodies, Fourth Generation, with Reflexes (2025 11:29 AM EST) HIV AB/AG Nonreactive Nonreactive [facility] Comment:HIV-1 p24 Ag and/or HIV-1/HIV-2 Ab not detected.A test result that is nonreactive does not exclude thepossibility of exposure to or infection with HIV-1 and/orHIV-2. Nonreactive results in this assay for individualswith prior exposure to HIV-1 and/or HIV-2 may be due toantigen and antibody levels that are below the limit ofdetection of this assay.The Drake Alinity HIV Ag/Ab Combo assay result andsupplemental assay results should be interpreted inconjunction with the patient's clinical presentation,history and other laboratory results. If the results areinconsistent with clinical evidence, additional testing issuggested to confirm the result. Blood Venous blood specimen / Unknown 2025 11:29 AM EST 2025 1:04 PM EST us Yoli Sullivan MD LAB BLOOD ORDERABLES Final Result Performing Organization Address [facility] Co de Phone Number [facility] [address] [place] [phone] * Hepatitis B Surface Antibody, Qualitative (2025 11:29 AM EST) ~Hepatitis B Surface Antibody NONREACTIVE Nonreactive [facility] Comment:Nonreactive: < 8.00 mIU/mL Blood Venous blood specimen / Unknown 2025 11:29 AM EST 2025 1:04 PM EST us Yoli Sullivan MD LAB BLOOD ORDERABLES Final Result Performing Organization Address [facility] Phone Number [facility] [address] [place] [phone] * PSA,Total (2025 11:29 AM EST) Prostate Specific Antigen 0.26 <0.05 - 4.0 ng/mL [facility] Comment:PSA methodology: Abb senthil Williamty i ChemiluminescentMicroparticle Immunoassay (CMIA) Blood Venous blood specimen / Unknown 2025 11:29 AM EST 2025 1:04 PM EST us Yoli Sullivan MD LAB BLOOD ORDERABLES Final Result Performing Organization Address [facility] Phone Number [facility] [address] [place] [phone] * Hemoglobin A1c (2025 11:29 AM EST) Hemoglobin A1c 5.5 <6.0 % [facility] Comment:Hemoglobin A1C Refer ence Range Adults: 4.8 - 6.0 % Non diabetic: < 6.0 % Goal: < 7.0 %Additional Action Suggested: > 8.0 %Note: Hemoglobin A1c results are invalid for patients with abnormal amounts of HbF. Blood transfusions may impact the HbA1c concentration in the patient sample. Estimated Average Glucose 111 mg/dL [facility] Comment:eAG = Estimated ave rage glucose which is %A1C expressed asaverage glucose, using the formula of the Q5X-AytmrtjGigvijh Glucose study (ADAG), Diabetes Care, Vol.31,#8,Feb. 2007 Blood Venous blood specimen / Unknown 2025 11:29 AM EST 2025 1:04 PM EST us Yoli Sullivan MD LAB BLOOD ORDERABLES Final Result [facility] [address] [place] [phone] * (ABNORMAL) Lipid Panel, Standard (2025 11:29 AM EST) Triglycerides 176(H) <150 mg/dL [facility] Comment:Slight Lipemia.South able Triglyceride: less than 150 mg/dLBorderline High Triglyceride 150-199 mg/dLHigh Triglyceride: 200-499 mg/dLVery High Triglyceride: greater than or equal to 5OO mg/dL Cholesterol 167 <200 mg/dL [facility] Comment:Desirable Cholestero l: less than 200 mg/dLBorderline High Cholesterol: 200-239 mg/dLHigh Cholesterol: greater than 239 mg/dL LDL Cholesterol Calculated 94 <100 mg/dL [facility] Comment:Desirable LDL: less than 100 mg/dLNear Optimal/Above Optimal LDL: 110- 129 mg/dLBorderline High LDL: 130-159 mg/dLHigh LDL: 160-189 mg/dLVery High LDL: greater than or equal to 190 mg/dL HDL Cholesterol 38(L) >40 mg/dL [facility] Comment:Desirable HDL: great er than 40 mg/dL Note: This HDL assay may give artificially low results in patients with liver disease. Blood Venous blood specimen / Unknown 2025 11:29 AM EST 2025 1:04 PM EST us Yoli Sullivan MD LAB BLOOD ORDERABLES Final Result [facility] [address] [place], [place] [phone] * (ABNORMAL) Comprehensive Metabolic Panel (2025 11:29 AM EST) Sodium 143 135 - 145 mmol/L [facility] Potassium 4.2 3.3 - 5.1 mmol/L [facility] Chloride 109(H) 96 - 108 mmol/L [facility] Carbon Dioxide 27 22 - 29 mmol/L [facility] Anion Gap 11(L) 12 - 20 [facility] Urea Nitrogen (BUN) 17(H) 9 - 16 mg/dL [facility] Creatinine, Serum 0.88 0.5 - 1.4 mg/dL [facility] Estimated Glomerular Filt Rate >60 [facility] Comment:Chronic Kidney Disea se: Estimated GFR < 60 mL/min/1.61d3Algyle Kidney Disease: Estimated GFR < 15 mL/min/1.73m2 Glucose 96 60 - 115 mg/dL [facility] Calcium 9.2 8.4 - 10.2 mg/dL [facility] Bilirubin, Total 0.4 0.0 - 1.0 mg/dL [facility] Aspartate Amino Transferase 32 5 - 37 U/L [facility] Alanine Aminotransferase 44(H) 0 - 40 U/L [facility] Total Protein 7.4 6.5 - 8.0 g/dL [facility] Albumin Level 4.6 3.5 - 5.0 g/dL [facility] Alkaline Phosphatase 100 39 - 117 U/L [facility] Blood Venous blood specimen / Unknown 2025 11:29 AM EST 2025 1:04 PM EST us Yoli Sullivan MD LAB BLOOD ORDERABLES Final Result [facility] [address] [place] [phone] from Last 3 Months Insurance [facility] PPO Care Teams Commercial Reporter Relationship Specialty Start Date End Date Ivy Lee NP [address] [place] [phone] PCP - General Nurse Practitioner 06/22/25
--- OUTSIDE RECORDS SUMMARY | 2025-06-25 10:48 | XMS_ITS | Patient Health Record ---
Author Organization [facility] Address [address] [place] [address] Care Team Providers Care Administrator Of Home Health Name Role Phone Lucita ROLAND, Joslyn Primary Care Provider Unavail able Louis Alba, Toño Unavailable Reason For Referral No Information Plan Of Treatment No Information Insurance Providers Payer Name Payer Address Payer Phone Subscriber Number Group Number Insured Name Patient Relationship to Insured Coverage Start Date Coverage End Date [facility] [address] [address] [place], [place] [id number] FAIZAN MALDONADO Self - patient is the insured
--- OUTSIDE RECORDS SUMMARY | 2025-06-25 10:48 | XMS_ITS | Encounter Summary ---
Author Organization [employer] Address [address] [facility] 7[address] [place] [address] Care Team Providers Care Early Intervention School Psychologist Name Role Phone Ivy Lee NP Primary Care Provider [phone] Reason for Referral * Imaging (Routine) - Authorized Specialty Diagnoses / Procedures Referred By [place] menard Referred To Contact Radiology Diagnoses Transaminitis Procedures US Abdomen Complete Yoli Sullivan MD [address] [place] [address] Phone: tel: fax: [facility] [address] [place] [phone] Phone: tel: fax: Referral ID Status Reason Start Date Expiration Date V isits Requested Visits Authorized [id number] Authorized 2025 2026 1 1 Encounter Details Date Type Department Care Team (Late st Contact Info) Description 2025 Orders Only [facility] [address] [place] [address] Yoli Sullivan MD [address] [place] [address] Transaminitis (Primary Dx); Low vitamin D level; Normocytic anemia Social History Tobacco Use Types Packs/Day Years [...] AM EDT documented as of this encounter Plan of Treatment Upcoming Encounters Date Type Department Care Team (Late st Contact Info) Description 06/29/2025 3:00 PM EST Office Visit [facility] [address] [place] [address] Ivy Lee NP [address] [place], [place] [phone] Scheduled Orders Name Type Priority Associated Diagnoses Orde r Schedule US Abdomen Complete Imaging Routine Transaminitis Expected: 2025, Expires: 2026 Smooth Muscle Antibody with Reflex to Titer Lab Routine Transaminitis Expected: 2025 (Approximate), Expires: 2026 Immunoglobulins, Quantitative, IgA, IgG, IgM Lab Routine Transaminitis Expected: 2025 (Approximate), Expires: 2026 Prothrombin Time-INR Lab Routine Transaminitis Expected: 2025, Expires: 2026 Ferritin Lab Routine Transaminitis Expected: 2025, Expires: 2026 Iron And Total Iron Binding Capacity Lab Routine Transaminitis Expected: 2025, Expires: 2026 Alpha 1 Antitrypsin Lab Routine Transaminitis Expected: 2025 (Approximate), Expires: 2026 Iron And Total Iron Binding Capacity Lab Routine Normocytic anemia Expected: 2025, Expires: 2026 Reticulocyte Count Lab Routine Normocytic anemia Expected: 2025, Expires: 2026 documented as of this encounter Visit Diagnoses Diagnosis Transaminitis- Primary Nonspecific elevation of levels of transaminase or lactic acid dehydrogenase (LDH) Low vitamin D level Normocytic anemia Unspecified anemia documented in this encounter Additional Health Concerns Assessment Noted Time PHQ-9 Depression Total Score: 12 025 12:34 PM EST documented as of this encounter Care Teams Early Intervention School Psychologist Relationship Specialty Start Date End Date Ivy Lee NP [address] [place] [phone] PCP - General Nurse Practitioner 06/22/25 documented as of this encounter
== END 2025-06-25 10:45 | disposition home or self-care (01) ==
LOC: HO.XRAY 10:44
PROVIDERS: PCP Internal Medicine; Visit Provider Internal Medicine
DX: M25.561 Pain in right knee (principal); M54.50 Low back pain, unspecified; G89.29 Other chronic pain
CPT/HCPCS: 72110; 73564

== ENCOUNTER → 2025-06-25 10:49 | Outpatient (BNV) | payer BC, SELFPAY | PROVIDERS: PCP Internal Medicine; Visit Provider Radiology Diagnostic Ultrasound | DX: M51.360 Other intervertebral disc degeneration, lumbar region with discogenic back pain only (principal); M47.816 Spondylosis without myelopathy or radiculopathy, lumbar region; M25.561 Pain in right knee | CPT/HCPCS: 72110; 73564 ==